=== PATIENT | female | born 1990 | race Caucasian/White ===

== ENCOUNTER 2024-10-17 15:58 | Emergency (ER) | payer OTHER, SELFPAY ==
[2024-10-17 16:05] VITALS: BP 103/63; PULSE 70; RESP 18; TEMP 36.8; O2SAT 98
[2024-10-17] MEDS: Meclizine 25 MG TAB PO (17:17)
[2024-10-17] MEDS: Oxymetazolone 0.05% SPRAY 15 ML BTL NS (17:18)
[2024-10-17] MEDS: Dexamethasone 4 MG TAB PO ×2 (17:18→18:47)
[2024-10-17] MEDS: Prochlorperazine 10 MG/2 ML VIAL 5 MG IM (17:18)
[2024-10-17 17:26] LABS: Abs Immature Grans 0.02 10^3/uL (0.0-0.06); HCT 34.9 % (36.0-46.0); HGB 11.6 g/dL (11.2-15.7); Immature Grans % 0.4 %; MCH 29.7 pg (27.0-33.0); MCHC 33.2 % (32.0-36.0); MCV 90 fL (80-95); MPV 7.9 fL (8.0-11.0); Platelet Count 254 10^3/uL (130-400); RBC 3.90 10^6/uL (3.93-5.22); RDW 12.3 % (11.7-14.6); RDW-SD 40.7 fL; WBC 5.07 10^3/uL (4.4-10.8)
[2024-10-17 17:54] LABS: ALT 28 U/L (14-59); AST 22 U/L (15-37); Albumin 4.1 g/dL (3.4-5.0); Alkaline Phosphatase 80 U/L (46-116); Anion Gap 7.4 mmol/L (3-11); BUN 18 mg/dL (7-18); Bilirubin, Total 0.3 mg/dL (0.2-1.0); CO2 28.6 mmol/L (21.0-32.0); Calcium 9.0 mg/dL (8.5-10.1); Chloride 104 mmol/L (98-107); Estimated GFR 122.23 (mL/min/1.73m2); Glucose 98 mg/dL (74-106); Magnesium 2.2 mg/dL (1.8-2.4); Potassium 4.0 mmol/L (3.5-5.1); Sodium 140 mmol/L (136-145); TSH (W/Ref FT4) 3.05 uIU/mL (0.36-3.74); Total Protein 7.9 g/dL (6.4-8.2)
[2024-10-17] MEDS: Meclizine 25 MG TAB 50 MG PO (18:47)
[2024-10-17] MEDS: Prochlorperazine 10 MG TAB 20 MG PO (18:48)
--- NOTE | 2024-10-17 18:53 | NUR.NOTE ---
Nursing Note: PT says she feels a little better was given D/C instructions on medication use at home she verbalized she understood the instructions and agreed with plan of care
--- NOTE | 2024-10-17 20:56 | ED.GENADUL_ITS ---
Discharge Plan Disposition Patient Disposition: Home Discharge Details Clinical Impression: Dizziness, Acute effusion of left ear Primary Care Provider: [facility] Provider: Flora Chiang Discharge Instructions Instructions: Vertigo ED Additional Instructions: The Compazine as needed for headache and nausea, you received a dose in the emergency department may take a dose tomorrow as needed Take the Decadron in 48 hours this is the steroid and will help the fluid drained behind your ear Take the Afrin 2 puffs every 12 hours for the next 3 days as a decongestant to help the fluid drain Meclizine will help with vertiginous symptoms including dizziness You may also perform Maggy at home Please return with persistent symptoms worsening dizziness, or should any new concerns arise make sure you are consuming at least eight 8 ounce glasses of water daily Discharge Data Discharge Date/Time-TO BE ENTERED AT DEPARTURE: 10/17/24 18:51 HPI General Date/Time Provider Initiated Documentation: 10/17/24 16:02 . HPI Narrative: 34-year-old female with vestibular migraines, depression, and anxiety presenting with intermittent vertigo. Symptoms began a couple of weeks ago. Maggy maneuver at home alleviated dizziness but triggered a violent reaction yesterday. Today, she feels foggy, has left ear congestion, intermittent nausea, and lightheadedness. No migraine medications currently. Symptoms last occurred 10 years ago. No fever, chills, SOB, chest pain, head trauma, significant headache, URI, or . General Stated Complaint: Dizzy/Sync SUDHAKAR: 3 Exam Narrative Exam Narrative: General Appearance: Alert and oriented, in no acute distress. Vital signs: Within normal limits. HEENT: Pupils equal, round, reactive to light and accommodation. No nystagmus. Fluid behind left TM. Respiratory: Within normal limits. Cardiovascular: No carotid bruit. Regular heart rate and rhythm. Neurological: Cranial nerves II-XII intact. No pronator drift. Negative skeedf-gcgl-fertty and kvia-ib-phxz tests. Steady gait. Skin: Warm and dry, no rash. Course Vital Signs Vital signs: Vital Signs Temperature 36.8 C 10/17/24 16:05 Pulse 70 10/17/24 16:05 Respiratory Rate 18 10/17/24 16:05 Blood Pressure 103/63 10/17/24 16:05 Pulse Oximetry 98 10/17/24 16:05 Temperature 36.8 C 10/17/24 16:05 Temperature Source Oral 10/17/24 16:05 Pulse 70 10/17/24 16:05 Respiratory Rate 18 10/17/24 16:05 Blood Pressure 103/63 10/17/24 16:05 Blood Pressure Position Sitting 10/17/24 16:05 Pulse Oximetry 98 10/17/24 16:05 Oxygen Delivery Method Room Air 10/17/24 16:05 Oxygen Flow Rate 0 10/17/24 16:05 Lab/Test Results Lab/Test Results: Laboratory Tests Range/Units 10/17/24 17:16 WBC (4.4-10.8) 10^3/uL 5.07 RBC (3.93-5.22) 10^6/uL 3.90 L Hgb (11.2-15.7) g/dL 11.6 Hct (36.0-46.0) % 34.9 L MCV (80-95) fL 90 MCH (27.0-33.0) pg 29.7 MCHC (32.0-36.0) % 33.2 RDW (11.7-14.6) % 12.3 Plt Count (130-400) 10^3/uL 254 MPV (8.0-11.0) fL 7.9 L Immature Gran % % 0.4 Neutrophils % % 61.9 Lymphocytes % % 28.2 Monocytes % % 7.7 Eosinophils % % 1.4 Basophils % % 0.4 Nucleated RBC % (0.0-0.3) % 0.0 Absolute Neutrophils (1.2-6.7) 10^3/uL 3.14 Absolute Lymphocytes (1.2-3.4) 10^3/uL 1.43 Absolute Monocytes (0.1-0.8) 10^3/uL 0.39 Absolute Eosinophils (0.0-0.7) 10^3/uL 0.07 Absolute Basophils (0.0-0.2) 10^3/uL 0.02 Sodium (136-145) mmol/L 140 Potassium (3.5-5.1) mmol/L 4.0 Chloride (98-107) mmol/L 104 Carbon Dioxide (21.0-32.0) mmol/L 28.6 Anion Gap (3-11) mmol/L 7.4 BUN (7-18) mg/dL 18 Creatinine (0.55-1.02) mg/dL 0.6 Est GFR (CKD-EPI 2020) (mL/min/1.73m2) 122.23 Glucose (74-106) mg/dL 98 Calcium (8.5-10.1) mg/dL 9.0 Magnesium (1.8-2.4) mg/dL 2.2 Total Bilirubin (0.2-1.0) mg/dL 0.3 AST (15-37) U/L 22 ALT (14-59) U/L 28 Alkaline Phosphatase (46-116) U/L 80 Total Protein (6.4-8.2) g/dL 7.9 Albumin (3.4-5.0) g/dL 4.1 TSH (0.36-3.74) uIU/mL 3.05 Medical Decision Making Initial Assessment: 34-year-old female with history of vestibular migraines, depression, and anxiety presenting with vertigo, left ear congestion, and lightheadedness. No fever, chills, SOB, chest pain, significant headache, head trauma, or URI. Differential Diagnosis: - Vestibular migraines: History of vestibular migraines. Encouraged to follow up with neurology. - BPPV: Tried Maggy maneuver at home with violent reaction. Maggy maneuver performed three times without significant improvement. - Ear congestion: Fluid behind left TM. Decadron administered. Afrin recommended as decongestant. ED Course: - Maggy maneuver performed three times without significant improvement. - Decadron administered for fluid behind left TM. - Afrin recommended as decongestant. - Compazine provided for nausea and headache. Final Assessment: Patient is stable, ambulatory with steady gait, and has a nonfocal neurological exam. No indication for imaging at this time. Clinical Impression: - Vestibular migraines - BPPV - Ear congestion Disposition: - Discharge home; stable, ambulatory with steady gait. - Follow-Up: Encouraged to follow up with neurology when she returns home. Return precautions reviewed in detail and patient expressed understanding. MDM Components Evaluation: - Number of Differential Diagnoses or Management Options: Vestibular migraines, BPPV, ear congestion. - Amount and Complexity of Data Reviewed: Physical exam findings, patient history. - Risk of Complication and Morbidity or Mortality: Very low suspicion, very low risk, no recent neck manipulations. PFSH All Active Problems (Updated 10/17/24 @ 18:37 by SAMANTA Estrada) Acute effusion of left ear (Acute) Dizziness (Acute) Social History Smoking/Tobacco Use Status: Never Smoking risk assessment performed?: Yes Substance use type: does not use and marijuana Details: state she smoked marijuana once a coupe weeks ago
== END 2024-10-17 18:51 | disposition home or self-care (01) ==
PROVIDERS: Emergency Provider Physician Assistant
DX: R42 Dizziness and giddiness (principal); H65.112 Acute and subacute allergic otitis media (mucoid) (sanguinous) (serous), left ear
CPT/HCPCS: 36415; 80053; 96372; 99283; 83735; 84443; 85025; J0780; J8540